=== PATIENT | male | born 1995 | race Caucasian/White ===

== ENCOUNTER 2017-10-16 10:01 | Emergency (ER) | payer MEDICAID ==
[~2017-10-16] VITALS: Ht 170.2 cm; Wt 79.0 kg
[~2017-10-16 10:01] MED LIST: HYDR-1348 PO; IBUP-2048; PSEU30TA29
[2017-10-16] MEDS ORDERED: KETOROLAC 60MG/2ML VIAL IM ONE (14:45)
[2017-10-16] MEDS ORDERED: METOCLOPRAMIDE HCL 5MG TABLET PO ONE (14:45)
[2017-10-16] MEDS ORDERED: DIPHENHYDRAMINE 25MG CAPSULE PO ONE (14:45)
[2017-10-16 15:04] VITALS: BP 120/47
== END 2017-10-16 15:48 | disposition home or self-care (01) ==
LOC: ER 10:28
DX: B34.9 Viral infection, unspecified (principal); F17.200 Nicotine dependence, unspecified, uncomplicated
CPT/HCPCS: 71045; 96372; 99283; J1885; Z7610; J8597; Q0163

== ENCOUNTER 2017-12-15 12:17 | Emergency (ER) | payer MEDICAID ==
[~2017-12-15] VITALS: Ht 170.2 cm; Wt 79.0 kg
[2017-12-15] MEDS ORDERED: KETOROLAC 60MG/2ML VIAL IM ONE (19:30)
[2017-12-15 19:55] VITALS: BP 115/49
== END 2017-12-15 20:01 | disposition home or self-care (01) ==
LOC: ER 16:14
DX: M25.511 Pain in right shoulder (principal); V28.0XXA Motorcycle driver injured in noncollision transport accident in nontraffic accident, initial encounter; Y93.89 Activity, other specified; Y92.488 Other paved roadways as the place of occurrence of the external cause
CPT/HCPCS: 73030; 96372; 99284; J1885

== ENCOUNTER 2018-12-14 12:00 | Emergency (ER) | payer SELFPAY ==
[~2018-12-14] VITALS: Ht 170.2 cm; Wt 77.0 kg
[2018-12-14] MEDS ORDERED: IBUPROFEN 600MG TABLET PO ONE (12:45)
[2018-12-14] MEDS ORDERED: PREDNISONE 20MG TABLET PO ONE (12:45)
[2018-12-14 14:25] VITALS: BP 102/58
== END 2018-12-14 14:38 | disposition home or self-care (01) ==
LOC: ER 12:00
DX: J03.90 Acute tonsillitis, unspecified (principal); R03.0 Elevated blood-pressure reading, without diagnosis of hypertension
CPT/HCPCS: 87070; 87430; 99283; J7512

== ENCOUNTER 2020-04-14 19:46 | Emergency (ER) | payer MEDICAID ==
[~2020-04-14] VITALS: Ht 170.2 cm; Wt 87.0 kg
[2020-04-14 19:49] VITALS: BP 125/57
[2020-04-14] MEDS ORDERED: IBUPROFEN 600MG TABLET PO ONE (20:45)
[2020-04-14] MEDS ORDERED: HYDROCODONE/ACETAMINOPHEN 5/325MG TABLET PO ONE (20:45)
[2020-04-14] MEDS ORDERED: BACITRACIN ZINC OINT UDPKT TOP ONE (21:30)
[2020-04-14] MEDS ORDERED: TETANUS, DIPHTHERIA, PERTUSSIS VAC/PF 0.5ML (>7YR OLD) IM ONE (21:30)
== END 2020-04-14 22:30 | disposition home or self-care (01) ==
LOC: ER 19:46
DX: S62.397A Other fracture of fifth metacarpal bone, left hand, initial encounter for closed fracture (principal); S46.812A Strain of other muscles, fascia and tendons at shoulder and upper arm level, left arm, initial encounter; S50.12XA Contusion of left forearm, initial encounter; V49.49XA Driver injured in collision with other motor vehicles in traffic accident, initial encounter; Y93.89 Activity, other specified; Y92.89 Other specified places as the place of occurrence of the external cause; Y99.8 Other external cause status; Z90.49 Acquired absence of other specified parts of digestive tract; Z79.899 Other long term (current) drug therapy
CPT/HCPCS: 29105; 73030; 73080; 73090; 73130; 90471; 90715; 99284

== ENCOUNTER 2021-03-12 12:19 | Emergency (ER) | payer MEDICAID, OTHER ==
[~2021-03-12] VITALS: Ht 170.2 cm; Wt 88.0 kg
[2021-03-12 12:38] VITALS: BP 112/59
[2021-03-12] MEDS ORDERED: CYCL5TAB MT (15:56)
[2021-03-12] MEDS ORDERED: NAPR-681 MT (15:56)
== END 2021-03-12 16:11 | disposition home or self-care (01) ==
LOC: ER 13:32
DX: S16.1XXA Strain of muscle, fascia and tendon at neck level, initial encounter (principal); R03.0 Elevated blood-pressure reading, without diagnosis of hypertension; X58.XXXA Exposure to other specified factors, initial encounter; Y93.89 Activity, other specified; Y92.89 Other specified places as the place of occurrence of the external cause
CPT/HCPCS: 99281

== ENCOUNTER 2021-10-21 11:22 | Emergency (ER) | payer OTHER ==
[~2021-10-21] VITALS: Ht 170.2 cm; Wt 85.0 kg
[~2021-10-21 11:22] MED LIST changes: +CYCL5TAB MT; +NAPR-681 MT
[2021-10-21] MEDS ORDERED: KETOROLAC 60MG/2ML VIAL IM ONE (11:45)
[2021-10-21] MEDS ORDERED: PREDNISONE 20MG TABLET PO ONE (11:45)
[2021-10-21 12:40] VITALS: BP 125/59
[2021-10-21] MEDS ORDERED: P20 MT (13:26)
[2021-10-21] MEDS ORDERED: IBUP-2030 MT (13:26)
[2021-10-21] MEDS ORDERED: PENICILLIN G BENZATHINE 1,200,000 UNITS/2ML SYR IM ONE (13:30)
== END 2021-10-21 14:16 | disposition home or self-care (01) ==
LOC: ER 13:21
DX: J02.0 Streptococcal pharyngitis (principal); Z90.49 Acquired absence of other specified parts of digestive tract; Z79.899 Other long term (current) drug therapy
CPT/HCPCS: 87430; 96372; 99284; J0561; J1885; J7512

== ENCOUNTER 2021-12-24 01:59 | Emergency (ER) | payer OTHER ==
[~2021-12-24] VITALS: Ht 170.2 cm; Wt 86.0 kg
[~2021-12-24 01:59] MED LIST changes: +IBUP-2030 MT; +P20 MT
[2021-12-24 02:07] VITALS: BP 99/64
[2021-12-24 06:12] LABS: BASOPHILS % 0.9 % (0.0-2.0); EOSINOPHILS % 1.5 % (0.0-5.0); HEMATOCRIT. 45.2 % (42.0-52.0); HEMOGLOBIN. 15.5 g/dL (14.0-18.0); MEAN CORPUSCULAR HEMOGLOBIN 29.3 pg (28.0-32.0); MEAN CORPUSCULAR VOLUME 85.7 fL (80.0-94.0); MEAN PLATELET VOLUME 7.5 fl (7.4-10.4); MONOCYTES % 9.4 % (2.0-8.0); NEUTROPHILS % 43.2 % (40.0-76.0); PLATELET 249 x1000/uL (130-400); RED BLOOD CELL COUNT 5.28 mill/uL (4.7-6.1); RED CELL DISTRIBUTION WIDTH 13.3 % (11.6-14.6)
[2021-12-24 06:13] LABS: CHLORIDE 107 mEq/L (98-107)
[2021-12-24] MEDS ORDERED: ACETAMINOPHEN 325MG TABLET PO ONE (07:45)
[2021-12-24] MEDS ORDERED: TOPUD PO (09:21)
== END 2021-12-24 10:11 | disposition home or self-care (01) ==
LOC: ER 01:59
DX: R07.2 Precordial pain (principal); R94.31 Abnormal electrocardiogram [ECG] [EKG]
CPT/HCPCS: 36415; 71045; 80053; 83880; 84484; 85025; 93005; 99285

== ENCOUNTER 2022-03-31 08:48 | Emergency (ER) | payer OTHER ==
[~2022-03-31] VITALS: Ht 170.2 cm; Wt 89.0 kg
[~2022-03-31 08:48] MED LIST changes: +TOPUD PO
[2022-03-31] MEDS ORDERED: ACETAMINOPHEN 325MG TABLET PO STA (09:10)
[2022-03-31] MEDS ORDERED: IBUPROFEN 600MG TABLET PO STA (09:10)
[2022-03-31] MEDS ORDERED: SODIUM CHLORIDE 0.9% 1,000 ML IV ONE (09:15)
[2022-03-31 10:06] LABS: HEMOGLOBIN. 15.5 g/dL (14.0-18.0); MEAN CORPUSCULAR HEMOGLOBIN 29.5 pg (28.0-32.0); MEAN CORPUSCULAR VOLUME 85.7 fL (80.0-94.0); MEAN PLATELET VOLUME 7.9 fl (7.4-10.4); PLATELET 229 x1000/uL (130-400); RED BLOOD CELL COUNT 5.25 mill/uL (4.7-6.1); RED CELL DISTRIBUTION WIDTH 12.8 % (11.6-14.6)
[2022-03-31 10:12] LABS: CHLORIDE 106 mEq/L (98-107)
[2022-03-31] MEDS ORDERED: IBUP-2029 MT (11:16)
[2022-03-31] MEDS ORDERED: AMOX-494 MT (11:16)
[2022-03-31 11:24] VITALS: BP 100/60
[2022-03-31 14:20] LABS: PLATELET ESTIMATE NORMAL
== END 2022-03-31 11:47 | disposition home or self-care (01) ==
LOC: ER 08:55
DX: R00.0 Tachycardia, unspecified (principal); R50.9 Fever, unspecified; J02.9 Acute pharyngitis, unspecified; Z98.890 Other specified postprocedural states; Z79.899 Other long term (current) drug therapy; Z20.822 Contact with and (suspected) exposure to COVID-19
CPT/HCPCS: 36415; 80053; 85025; 87070; 87426; 87430; 96360; 99283; C9803; J7030

== ENCOUNTER 2022-03-31 18:33 | Emergency (ER) | payer OTHER ==
[~2022-03-31 18:33] MED LIST changes: +AMOX-494 MT; +IBUP-2029 MT
== END 2022-03-31 19:03 | disposition left against medical advice (07) ==
LOC: ER 18:33
DX: Z53.21 Procedure and treatment not carried out due to patient leaving prior to being seen by health care provider (principal)

== ENCOUNTER 2025-01-09 19:49 | Emergency (ER) | payer SELFPAY ==
[~2025-01-09] VITALS: Ht 170.2 cm; Wt 82.0 kg
[~2025-01-09 19:49] MED LIST changes: -CYCL5TAB MT; +CYCL5TAB3 MT
[2025-01-09 20:02] VITALS: TEMP 36.8; O2SAT 97
[2025-01-09] MEDS: DEXAMETHASONE 10 MG/ML VIAL PO ONE (22:08)
[2025-01-09] MEDS: KETOROLAC 15MG/ML VIAL IM ONE (22:10)
[2025-01-09 23:00] VITALS: BP 123/81; PULSE 72; RESP 16; O2SAT 96
== END 2025-01-09 23:00 | disposition home or self-care (01) ==
LOC: ER 19:57
DX: J02.8 Acute pharyngitis due to other specified organisms (principal); B97.89 Other viral agents as the cause of diseases classified elsewhere; Z79.1 Long term (current) use of non-steroidal anti-inflammatories (NSAID); Z79.52 Long term (current) use of systemic steroids; Z90.49 Acquired absence of other specified parts of digestive tract
CPT/HCPCS: 99283; 87430; 87070; 96372; J1885; J1100